=== PATIENT | female | born 2000 | race African-American/Black ===

== ENCOUNTER 2021-03-21 06:04 | Emergency (ER) | payer OTHER ==
[~2021-03-21] VITALS: Ht 157.5 cm; Wt 77.1 kg
[2021-03-21] MEDS ORDERED: PROAIR HFA8.5 GM INH (06:14)
[2021-03-21] MEDS ORDERED: METHYLPREDNISOL32 MG PO (06:14)
[2021-03-21 06:45] LABS: HEMATOCRIT 39.2 % (37.0-47.0); HEMOGLOBIN 13.3 gm/dL (12.0-15.0); MCH 30.3 pg (26.0-34.0); MCHC 33.9 g/dL (28.0-37.0); MCV 89.4 fL (80.0-100.0); MPV 8.4 fl. (7.2-11.1); RBC 4.39 mil/uL (4.20-5.00); RDW-CV 13.1 % (10.5-14.5); WBC 12.7 thou/uL (4.0-11.0)
[2021-03-21 06:50] LABS: CALCIUM 8.4 mg/dL (8.5-10.1); CREATININE 0.8 mg/dL (0.6-1.3); POTASSIUM 3.3 mmol/L (3.5-5.1)
[2021-03-21 06:55] LABS: ALBUMIN 3.6 g/dL (3.4-5.0); TOTAL BILIRUBIN 0.2 mg/dL (<0.1-1.0); TOTAL PROTEIN 7.9 g/dL (6.4-8.2)
[2021-03-21 07:07] LABS: ALCOHOL < 10 mg/dL (<10); SALICYLATE < 2.8 mg/dL (2.8-20.0)
[2021-03-21 07:08] LABS: ACETAMINOPHEN < 2 ug/mL (10-30)
[2021-03-21 08:23] LABS: AMP/METHAMP Negative (Negative); BARBITURATES Negative (Negative); BENZODIAZEPINES Negative (Negative); COCAINE Negative (Negative); METHADONE Negative (Negative); OPIATES Negative (Negative); PCP Negative (Negative); THC POSITIVE (Negative)
[2021-03-21 08:25] LABS: URINE BILIRUBIN NEGATIVE (Negative); URINE BLOOD 3+ (Negative); URINE CLARITY CLEAR; URINE COLOR YELLOW; URINE GLUCOSE-RANDOM NEGATIVE (Negative); URINE KETONES NEGATIVE (Negative); URINE LEUKOCYTES NEGATIVE (Negative); URINE NITRITE POSITIVE (Negative); URINE PROTEIN NEGATIVE (Negative); URINE UROBILINOGEN 0.2 E.U./dl (0.2-1.0)
[2021-03-21 08:29] LABS: CASTS None Seen /LPF (None Seen); CRYSTALS None Seen /LPF (None Seen); SQUAMOUS 0-3 Few /LPF (0-3); URINE RBC 0-2 Rare /HPF (0-2); URINE WBC 0-5 Rare /HPF (0-5)
[2021-03-21] MEDS ORDERED: VENTOLIN HFA 1818 GM INH (09:01)
[2021-03-21 09:34] VITALS: BP 90/72
== END 2021-03-21 09:34 | disposition home or self-care (01) ==
LOC: M.ERS 06:04
PROVIDERS: Personal Emergency Response Attendant
DX: F41.9 Anxiety disorder, unspecified (principal); J45.909 Unspecified asthma, uncomplicated; Z79.899 Other long term (current) drug therapy

== ENCOUNTER 2021-05-30 10:40 | Emergency (ER) | payer OTHER ==
[~2021-05-30] VITALS: Ht 157.5 cm; Wt 77.1 kg
[~2021-05-30 10:40] MED LIST: METHYLPREDNISOL32 MG PO; PROAIR HFA8.5 GM INH; VENTOLIN HFA 1818 GM INH
[2021-05-30] MEDS ORDERED: AUGMENTIN 875-1 EACH PO ×2 (11:22→12:24)
[2021-05-30 11:38] VITALS: BP 126/68
[2021-05-31] MEDS ORDERED: PROAIR HFA8.5 GM INH (08:54)
[2021-05-31] MEDS ORDERED: PREDNISONE 20 M20 M1 PO (08:54)
== END 2021-05-30 11:39 | disposition home or self-care (01) ==
LOC: M.ERS 10:40
DX: H66.92 Otitis media, unspecified, left ear (principal); J45.909 Unspecified asthma, uncomplicated; F41.9 Anxiety disorder, unspecified; Z79.51 Long term (current) use of inhaled steroids; Z79.899 Other long term (current) drug therapy

== ENCOUNTER 2021-05-31 07:33 | Emergency (ER) | payer OTHER ==
[~2021-05-31] VITALS: Ht 157.5 cm; Wt 77.1 kg
[~2021-05-31 07:33] MED LIST changes: +AUGMENTIN 875-1 EACH PO
[2021-05-31] MEDS ORDERED: PROAIR HFA8.5 GM INH (08:54)
[2021-05-31] MEDS ORDERED: PREDNISONE 20 M20 M1 PO (08:54)
[2021-05-31 09:14] VITALS: BP 151/86
== END 2021-05-31 09:16 | disposition home or self-care (01) ==
LOC: M.ERS 07:33
DX: J45.901 Unspecified asthma with (acute) exacerbation (principal); Z20.822 Contact with and (suspected) exposure to COVID-19; F41.9 Anxiety disorder, unspecified; Z79.2 Long term (current) use of antibiotics

== ENCOUNTER 2021-05-31 17:43 | Emergency (ER) | payer OTHER ==
[~2021-05-31] VITALS: Ht 157.5 cm; Wt 77.1 kg
[~2021-05-31 17:43] MED LIST changes: +PREDNISONE 20 M20 M1 PO
[2021-05-31 19:06] VITALS: BP 121/70
== END 2021-05-31 19:07 | disposition home or self-care (01) ==
LOC: M.ERS 17:43
DX: J45.901 Unspecified asthma with (acute) exacerbation (principal); Z20.822 Contact with and (suspected) exposure to COVID-19; F41.9 Anxiety disorder, unspecified; Z79.2 Long term (current) use of antibiotics

== ENCOUNTER 2021-06-21 17:07 | Emergency (ER) | payer OTHER ==
[~2021-06-21] VITALS: Ht 157.5 cm; Wt 81.7 kg
[2021-06-21 17:42] VITALS: BP 131/84
== END 2021-06-21 17:43 | disposition home or self-care (01) ==
LOC: M.ERS 17:07
DX: J45.901 Unspecified asthma with (acute) exacerbation (principal); F41.9 Anxiety disorder, unspecified

== ENCOUNTER 2021-07-01 15:34 | Emergency (ER) | payer OTHER ==
[~2021-07-01] VITALS: Ht 157.5 cm; Wt 81.7 kg
[2021-07-01 16:15] LABS: URINE BILIRUBIN NEGATIVE (Negative); URINE BLOOD TRACE (Negative); URINE CLARITY CLEAR; URINE COLOR YELLOW; URINE GLUCOSE-RANDOM NEGATIVE (Negative); URINE KETONES NEGATIVE (Negative); URINE LEUKOCYTES-REFLEX NEGATIVE (Negative); URINE NITRITE-REFLEX NEGATIVE (Negative); URINE PROTEIN TRACE (Negative); URINE SPECIFIC GRAVITY >= 1.030 (1.005-1.030); URINE UROBILINOGEN 0.2 E.U./dl (0.2-1.0)
[2021-07-01 16:38] LABS: ABSOLUTE BASOPHILS 0.1 thou/uL (0.0-0.2); ABSOLUTE EOSINOPHILS 0.3 thou/uL (0.0-0.7); ABSOLUTE LYMPHOCYTES 2.1 thou/uL (0.8-5.3); ABSOLUTE MONOCYTES 0.5 thou/uL (0.0-1.2); ABSOLUTE NEUTROPHILS 3.7 thou/uL (1.6-8.1); BASOPHILS 0.8 %; EOSINOPHILS 4.7 %; HEMATOCRIT 36.9 % (37.0-47.0); HEMOGLOBIN 12.5 gm/dL (12.0-15.0); LYMPHOCYTES 31.9 %; MCH 29.9 pg (26.0-34.0); MCHC 33.9 g/dL (28.0-37.0); MCV 88.3 fL (80.0-100.0); MONOCYTES 6.8 %; MPV 7.9 fl. (7.2-11.1); NUCLEATED RBCS 0 /100WBC; PLATELET COUNT* 263 thou/uL (150-400); POLYS 55.8 %; RBC 4.18 mil/uL (4.20-5.00); RDW-CV 12.6 % (10.5-14.5); WBC 6.7 thou/uL (4.0-11.0)
[2021-07-01 16:47] LABS: CALCIUM 8.5 mg/dL (8.5-10.1); CREATININE 0.9 mg/dL (0.6-1.3); POTASSIUM 3.6 mmol/L (3.5-5.1)
[2021-07-01 16:52] LABS: ALBUMIN 3.5 g/dL (3.4-5.0); TOTAL BILIRUBIN 0.2 mg/dL (<0.1-1.0); TOTAL PROTEIN 7.1 g/dL (6.4-8.2)
[2021-07-01] MEDS ORDERED: VISTARIL 25 MG25 M1 PO (17:25)
[2021-07-01 17:37] VITALS: BP 134/72
--- NOTE | 2021-07-02 11:30 | EKG ---
[place] [address] ELECTROCARDIOGRAM REPORT Name: АНДРЕЙ NANCE Room: [facility]#: [id number] Admission: 07/01/21 Attend Phys: Discharge: 07/01/21 Date of : [birth year] Date of Service: 07/01/21 1539 Report #: [id number] THIS REPORT FOR: //name// [facility] ED Test Date: 2021-07-01 Test Time: 15:39:16 Pat Name: АНДРЕЙ NANCE Department: Room: Gender: [employer] Caseworker: [place] : [id number] Requested By: Natalya Rosales Order Number: [id number] MD: Vladimir Padilla Measurements Intervals [place] Rate: 79 P: 10 AK: 141 QRS: 30 QRSD: 93 T: 26 QT: 402 QTc: 461 Interpretive Statements Sinus rhythm No previous ECG available for comparison Electronically Signed On 07-02-2021 11:30:38 CDT by Vladimir Padilla [email or web address] <ELECTRONICALLY SIGNED> By: Landon Padilla MD, [facility] 07/02/21 1130 D: [id number] Landon Padilla MD, FACC /EPI
== END 2021-07-01 17:38 | disposition home or self-care (01) ==
LOC: M.ERS 15:34
PROVIDERS: Physician Assistant
DX: F41.9 Anxiety disorder, unspecified (principal); R42 Dizziness and giddiness; J45.909 Unspecified asthma, uncomplicated

== ENCOUNTER 2021-10-18 17:15 | Emergency (ER) | payer OTHER ==
[~2021-10-18] VITALS: Ht 157.5 cm; Wt 81.7 kg
[~2021-10-18 17:15] MED LIST changes: +VISTARIL 25 MG25 M1 PO
[2021-10-18] MEDS ORDERED: PREDNISONE 10 M10 MG PO (17:53)
[2021-10-18 18:54] VITALS: BP 155/82
== END 2021-10-18 18:56 ==
LOC: M.ERS 17:15
DX: J03.90 Acute tonsillitis, unspecified (principal); J45.909 Unspecified asthma, uncomplicated; F41.9 Anxiety disorder, unspecified